=== PATIENT | female | born 1960 | race Asian ===

== ENCOUNTER 2024-09-05 07:09 | Emergency (ER) | payer OTHER, SELFPAY ==
[2024-09-05] VITALS (9 sets, daily range): BP systolic 125–151; BP diastolic 78–88; BMI 25.0
--- NOTE | 2024-09-05 09:43 | ED.GENMED ---
History of Present Illness
<Elida Garcia MD, Resident - Last Filed: 09/05/24 15:55>
General
Chief Complaint: Throat Problem
Source: patient and significant other
Exam Limitations: none
Time Seen by Provider: 09/05/24 08:56
Nursing documentation reviewed up to this point in time: agreed with
History of Present Illness
History of Present Illness:
Ms. Brandon Granado is a 63yoF with a PMH notable for epiglottitis over 30 years ago in [place] who is presenting with throat pain with difficulty breathing since yesterday morning.
Yesterday, the throat increased throughout the day. She was able to eat. Today, she has not attempted to eat. She took cefuroxime at 1:00 am today, which decreased her throat pain. She comes to the ED now due to increased difficulty breathing and
pain. She states her symptoms feel similar to when she had epiglottitis in [place] 30 years ago, for which she was treated with an injected antibiotic. She has also had Covid-19 in recent years.
She reports bending her neck/head to the left makes it easier to breathe, whereas bending her head to the right makes it harder to breathe. She says she feels fullness on the left side of her neck. She holds the left side of her neck.
She denies having sick contacts and does not interact with many new people on a daily basis.
She endorses lightheadedness. She denies pain in her chest, head, abdomen, and extremities.
She is allergic to sulfa drugs.
Past History
<Elida Garcia MD, Resident - Last Filed: 09/05/24 15:55>
Past History
ED Past Medical History: Other (epiglottitis several times, with the last being 30 years ago)
Patient has exhibited threatening behavior?: No
Review of Systems
<Elida Garcia MD, Resident - Last Filed: 09/05/24 15:55>
Review of Systems
All Other Systems: ROS reviewed and negative except as documented in HPI and ROS
Constitutional: Reports no symptoms (denies fevers and chills)
EENT: Reports sore throat
Respiratory: Reports trouble breathing
Cardiac: Reports no symptoms
ABD/GI: Reports no symptoms
: Reports no symptoms
Musculoskeletal: Reports no symptoms
Skin: Reports no symptoms
Neurological: Reports dizzy
Phy Exam
<Elida Garcia MD, Resident - Last Filed: 09/05/24 15:55>
Physical Exam
Physical Exam:
General: alert. Grimacing, uncomfortable, holding left side of neck.
Neck: firmness in submandibular region c/l, no tenderness to palpation
Mouth: Pharyngitis. Uvula non-deviated. Voice hoarse when asked to say 'ahh'
Lungs: Wheezes b/l, most significant at bases. Transmitted breath sounds (patient denies history of asthma and COPD)
Audible wheezing
CV: tachycardic.
Regular rhythm, no pedal edema
GI: nontender to palpation in all quadrants. No suprapubic tenderness. Bowel sounds normal
General Physical Exam
General Presentation: moderate distress
General age: appears stated age
General Skin: warm and dry
General Habitus: normal
General Mental: alert
General Hydration: dry mucous membranes
ENT Exam
ENT Exam: TM's normal (Left TM examined and nl (on the side patient is holding neck))
Pulmonary Exam
Pulmonary Exam: generalized wheezing and respiratory distress
Respiratory Effort: tachypnea
Course
<Elida Garcia MD, Resident - Last Filed: 09/05/24 15:55>
Orders/Labs/Results
Orders:
Orders
09/05/24 09:37
Electrocardiogram (*1) Urgent
Reason for Study: Shortness of Breath
09/05/24 09:40
Cardiac Monitoring- Treatment ONCE
09/05/24 10:07
Cardiac Monitoring- Treatment ONCE
CefTRIAXone [Rocephin] 2,000 mg IV NOW STA
CR Chest Portable - 1 View Stat
Comment:
Reason For Exam: resp distress
Reason Study Needs to be Portable: Patient Unstable
Pulse Ox/cont/shift [RESP] Urgent
Quantity: 1
09/05/24 10:08
CR Portable Spine - 1 View Stat
Comment:
Reason For Exam: sob, throat pain
09/05/24 10:15
Complete Blood Count/With Diff Urgent
Comprehensive Metabolic Panel Urgent
Lactic Acid Q4H
Comment: CANCEL 2nd LACTIC ACID IF 1st LACTIC ACID IS LESS THAN 2
Blood Culture Q30M
SHANI Source: Blood/Venous
Specimen Description:
Blood Culture Q30M
SHANI Source: Blood/Venous
Specimen Description:
09/05/24 10:27
CT Neck With Iv Contrast Urgent
Comment:
Reason For Exam: neck fullness
Sterile Water [Sterile Water For Injection] 20 ml .ROUTE .STK-MED
09/05/24 10:58
Vancomycin [Vancocin] 1,500 mg 0.9% Sodium Chloride 500 ml [Nss] 500 ml IV NOW
09/05/24 12:59
Diphenhydramine [Benadryl] 50 mg .ROUTE .STK-MED ONE
EPINEPHrine PF [Adrenalin] 1 mg .ROUTE .STK-MED ONE
09/05/24 13:07
Diphenhydramine [Benadryl] 50 mg IV NOW STA
09/05/24 13:08
0.9% Sodium Chloride 1000 ml [Nss] 1,000 ml IV BOLUS
09/05/24 17:47
Dexamethasone Sod Phosphate [Decadron] 8 mg IV NOW STA
Abnormal Lab Results
09/05/24
10:15
MPV 11.2 H fL
(7.4-10.4)
Chloride 114 H mmol/L
(98-107)
Carbon Dioxide 21 L mmol/L
(22-30)
Glucose 113 H mg/dl
(70-99)
09/05/24 10:15
09/05/24 10:15
Vital Signs
Initial and Last Documented VS:
Initial Vital Signs
Temp Pulse BP Pulse Ox
97.6 F 94 125/86 99
09/05/24 07:26 09/05/24 07:26 09/05/24 07:26 09/05/24 07:26
Last Documented Vital Signs
Temp Pulse Resp BP Pulse Ox
97.6 F 93 14 146/85 100
09/05/24 07:26 09/05/24 18:30 09/05/24 18:30 09/05/24 17:00 09/05/24 17:45
<Robyn Delaney MD - Last Filed: 09/05/24 16:04>
Orders/Labs/Results
Orders:
Orders
09/05/24 09:37
Electrocardiogram (*1) Urgent
Reason for Study: Shortness of Breath
09/05/24 09:40
Cardiac Monitoring- Treatment ONCE
09/05/24 10:07
Cardiac Monitoring- Treatment ONCE
CefTRIAXone [Rocephin] 2,000 mg IV NOW STA
CR Chest Portable - 1 View Stat
Comment:
Reason For Exam: resp distress
Reason Study Needs to be Portable: Patient Unstable
Pulse Ox/cont/shift [RESP] Urgent
Quantity: 1
09/05/24 10:08
CR Portable Spine - 1 View Stat
Comment:
Reason For Exam: sob, throat pain
09/05/24 10:15
Complete Blood Count/With Diff Urgent
Comprehensive Metabolic Panel Urgent
Lactic Acid Q4H
Comment: CANCEL 2nd LACTIC ACID IF 1st LACTIC ACID IS LESS THAN 2
Blood Culture Q30M
SHANI Source: Blood/Venous
Specimen Description:
Blood Culture Q30M
SHANI Source: Blood/Venous
Specimen Description:
09/05/24 10:27
CT Neck With Iv Contrast Urgent
Comment:
Reason For Exam: neck fullness
Sterile Water [Sterile Water For Injection] 20 ml .ROUTE .STK-MED
09/05/24 10:58
Vancomycin [Vancocin] 1,500 mg 0.9% Sodium Chloride 500 ml [Nss] 500 ml IV NOW
09/05/24 12:59
Diphenhydramine [Benadryl] 50 mg .ROUTE .STK-MED ONE
EPINEPHrine PF [Adrenalin] 1 mg .ROUTE .STK-MED ONE
09/05/24 13:07
Diphenhydramine [Benadryl] 50 mg IV NOW STA
09/05/24 13:08
0.9% Sodium Chloride 1000 ml [Nss] 1,000 ml IV BOLUS
09/05/24 17:47
Dexamethasone Sod Phosphate [Decadron] 8 mg IV NOW STA
Abnormal Lab Results
09/05/24
10:15
MPV 11.2 H fL
(7.4-10.4)
Chloride 114 H mmol/L
(98-107)
Carbon Dioxide 21 L mmol/L
(22-30)
Glucose 113 H mg/dl
(70-99)
09/05/24 10:15
09/05/24 10:15
Vital Signs
Initial and Last Documented VS:
Initial Vital Signs
Temp Pulse BP Pulse Ox
97.6 F 94 125/86 99
09/05/24 07:26 09/05/24 07:26 09/05/24 07:26 09/05/24 07:26
Last Documented Vital Signs
Temp Pulse Resp BP Pulse Ox
97.6 F 93 14 146/85 100
09/05/24 07:26 09/05/24 18:30 09/05/24 18:30 09/05/24 17:00 09/05/24 17:45
<Braeden Jean Baptiste MD - Last Filed: 09/05/24 19:00>
Orders/Labs/Results
Orders:
Orders
09/05/24 09:37
Electrocardiogram (*1) Urgent
Reason for Study: Shortness of Breath
09/05/24 09:40
Cardiac Monitoring- Treatment ONCE
09/05/24 10:07
Cardiac Monitoring- Treatment ONCE
CefTRIAXone [Rocephin] 2,000 mg IV NOW STA
CR Chest Portable - 1 View Stat
Comment:
Reason For Exam: resp distress
Reason Study Needs to be Portable: Patient Unstable
Pulse Ox/cont/shift [RESP] Urgent
Quantity: 1
09/05/24 10:08
CR Portable Spine - 1 View Stat
Comment:
Reason For Exam: sob, throat pain
09/05/24 10:15
Complete Blood Count/With Diff Urgent
Comprehensive Metabolic Panel Urgent
Lactic Acid Q4H
Comment: CANCEL 2nd LACTIC ACID IF 1st LACTIC ACID IS LESS THAN 2
Blood Culture Q30M
SHANI Source: Blood/Venous
Specimen Description:
Blood Culture Q30M
SHANI Source: Blood/Venous
Specimen Description:
09/05/24 10:27
CT Neck With Iv Contrast Urgent
Comment:
Reason For Exam: neck fullness
Sterile Water [Sterile Water For Injection] 20 ml .ROUTE .STK-MED
09/05/24 10:58
Vancomycin [Vancocin] 1,500 mg 0.9% Sodium Chloride 500 ml [Nss] 500 ml IV NOW
09/05/24 12:59
Diphenhydramine [Benadryl] 50 mg .ROUTE .STK-MED ONE
EPINEPHrine PF [Adrenalin] 1 mg .ROUTE .STK-MED ONE
09/05/24 13:07
Diphenhydramine [Benadryl] 50 mg IV NOW STA
09/05/24 13:08
0.9% Sodium Chloride 1000 ml [Nss] 1,000 ml IV BOLUS
09/05/24 17:47
Dexamethasone Sod Phosphate [Decadron] 8 mg IV NOW STA
Abnormal Lab Results
09/05/24
10:15
MPV 11.2 H fL
(7.4-10.4)
Chloride 114 H mmol/L
(98-107)
Carbon Dioxide 21 L mmol/L
(22-30)
Glucose 113 H mg/dl
(70-99)
09/05/24 10:15
09/05/24 10:15
Vital Signs
Initial and Last Documented VS:
Initial Vital Signs
Temp Pulse BP Pulse Ox
97.6 F 94 125/86 99
09/05/24 07:26 09/05/24 07:26 09/05/24 07:26 09/05/24 07:26
Last Documented Vital Signs
Temp Pulse Resp BP Pulse Ox
97.6 F 93 14 146/85 100
09/05/24 07:26 09/05/24 18:30 09/05/24 18:30 09/05/24 17:00 09/05/24 17:45
<Elida Garcia MD, Resident - Last Filed: 09/05/24 15:55>
MDM/Problems Addressed
Differential Diagnosis Includes:
Strep pharyngitis
Epiglottitis
Retropharyngeal abscess
MDM/Problems Addressed:
Ms. 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 A collection in the L pyriform sinus, likely an abscess, was found on CT.
CXR: no acute pulmonary process
CBC: wnl
CMP: Co2 low and Cl high, compatible with respiratory alkalosis
EKG: wnl
Troponin: non-elevated
Afebrile, satting at 100%, RR 15, pulse 72, bp 126/78
CT neck: collection at left pyriform sinus (near epiglottis), which may be abscess or mass
ENT consulted for next steps in management.
Ceftriaxone IV 2g and vancomycin IV: given patient's respiratory distress, initially treated as possible epiglottitis. Continue for abscess
Throat pain: declined pain meds
<Elida Garcia MD, Resident - Last Filed: 09/05/24 15:55>
*Pulse Oximetry
SaO2: 99
Oxygen Mode of Delivery: Room air
Patient hypoxic: no
*EKG
Interpreted by ED Provider?: Yes
Interpretation: normal
Rate: normal
Rhythm: sinus
Ischemia: non-specific ST changes
*Client Liaison Interpretation
Rate: normal
Interpretation: normal
Rhythm: sinus
*Critical Care Note
Total Time (30-74mins, 75-104mins- exclusive of procedures): 30-74mins
comment:
Respiratory distress
Vancomycin infusion reaction
<Elida Garcia MD, Resident - Last Filed: 09/05/24 15:55>
Update Note
Update Note:
When checking in on the patient 30 minutes after starting IV ceftriaxone, patient was noted to be breathing comfortably with some remaining breath sounds. She was dozing off but arousable easily. She was able to walk to the bathroom with the
assistance of her .
Abscess or mass at left pyriform sinus (adjacent to epiglottis) demonstrated on neck CT. Epiglottis appears unremarkable.
During vancomycin infusion, patient developed a pruritic, diffuse, macular rash on shoulders, back, upper chest, forehead, and face. Patient denied SOB. Did not desat. Stopped infusion and gave 50mg diphenhydramine. Patient states itchiness and warm
of rash decreased.
An hour later, patient's rash and pruritus are gone. Restarted remaining 210 ml vancomycin at 1mL/min. Patient has not developed rash or pruritus again. Patient was informed an ENT doctor after his clinic to discuss next steps.
<Braeden Jean Baptiste MD - Last Filed: 09/05/24 19:00>
Update Note
Update Note:
When checking in on the patient 30 minutes after starting IV ceftriaxone, patient was noted to be breathing comfortably with some remaining breath sounds. She was dozing off but arousable easily. She was able to walk to the bathroom with the
assistance of her .
Abscess or mass at left pyriform sinus (adjacent to epiglottis) demonstrated on neck CT. Epiglottis appears unremarkable.
During vancomycin infusion, patient developed a pruritic, diffuse, macular rash on shoulders, back, upper chest, forehead, and face. Patient denied SOB. Did not desat. Stopped infusion and gave 50mg diphenhydramine. Patient states itchiness and warm
of rash decreased.
An hour later, patient's rash and pruritus are gone. Restarted remaining 210 ml vancomycin at 1mL/min. Patient has not developed rash or pruritus again. Patient was informed an ENT doctor after his clinic to discuss next steps.
1900... Patient seen by ENT. Patient apparently improved significantly with steroids. They felt if she improved she could go home if not admission. Patient and state they have improved significantly and would like to go home and manage at
home. She is in no distress. She will be discharged with steroids antibiotics and follow-up. Speech appears normal. No drooling or stridor.
ED Attending Note
<Elida Garcia MD, Resident - Last Filed: 09/05/24 15:55>
-
Portions of this chart may have been created with voice recognition software.� Occasional wrong word or��sound alike� substitutions may have occurred due to the inherent limitations of voice recognition software.
<Robyn Delaney MD - Last Filed: 09/05/24 16:04>
ED Attending Note
Patient seen and examined by attending physician: Yes
I performed a history and physical exam of patient and discussed management with resident, I reviewed resident's note and agree with documented findings and plan of care.: Yes
ED Attending Note:
63-year-old female presents emergency department with progressive abnormal feeling prickly on the left side of her throat area. Initially she felt discomfort there yesterday, but now she describes just a sensation like there is something there on
the left side that is making it hard to breathe. This feels similar to when she was diagnosed with epiglottitis in [place] many years ago. She denies fever, chills, chest pain. She does have discomfort in the left ear. She denies recent dental
work or recent URI. On exam, tolerating secretions, no drooling, voice is clear, no stridor. TM clear on the left. No submental swelling, no trismus, oropharynx clear, uvula midline, no posterior pharyngeal swelling. No tenderness to palpation
noted of the neck/facial area, no redness warmth.Lungs CTA. Hrt rrr. When listening closely, sl upper airway transmitted sounds noted, without actual stridor.
Xray changed to portable, pox 100%. IV abx, labs, etc ordered.
Multiple reassesments here...pt much more comfortable (she has been quite anxious during her stay here), pox 100%, no stridor or drool. Dr Hampton to see pt in ED sometime after 5pm, dispo accordingly.
Discharge Plan
Departure
Patient Disposition: Home (Routine Discharge)
Date of Disposition: 09/05/24
Time of Disposition: 18:54
Patient with high blood pressure during this ER visit?: Yes
Condition: Good
Discharge Problem:
Abscess
Instructions: BLOOD PRESSURE
Prescriptions:
New
amoxicillin-pot clavulanate 875-125 mg tablet
1 tab PO BID Qty: 14 0RF
prednisone 10 mg tablet
10 mg PO DAILY Qty: 30 0RF
Rx Instructions:
5 tablets day 1. Then 1 less tablet every other day until gone
Referrals:
[facility] [Other]
NONE,* [Family Provider, Internal Medicine]
Larry Hampton MD [Active, ENT] - Follow up in 2-3 days
Activity Restrictions/Additional Instructions:
IF YOU DEVELOP TROUBLE BREATHING, FEVER, VOMITING, INCREASING PAIN, SWELLING, CHANGE IN VOICE, OR OTHER WORRISOME SIGNS, GO TO THE ER IMMEDIATELY!
Start the antibiotics and prednisone tomorrow
Interventions
Interventions:
*Risk Screen - Suicide Last Done: 09/05/24 07:35
*General Assessment Last Done: 09/05/24 07:35
*Neglect/Abuse Screening Last Done: 09/05/24 11:11
*ED COVID-19 Vaccine History Last Done: 09/05/24 07:35
ED-EENT Assessment Last Done: 09/05/24 11:11
ED- Pulmonary Assessment Last Done: 09/05/24 11:11
Discharge Date and Time
Print Language: MONGOLIAN
--- NOTE | 2024-09-05 10:28 | PHANOTE ---
med rec note- patient [place] cephalosporin from [place] and took the medication yesterday
[2024-09-05] MEDS: ROCEPHIN 2000 MG IV (10:32)
[2024-09-05 10:37] LABS: Hematocrit 39.4 % (37.0-47.0); Hemoglobin 13.8 g/dL (12.0-16.0); Mean Corp Hgb Conc. 35.0 g/dL (33.0-37.0); Mean Corpuscular Volume 86.8 fL (81.0-99.0); Nucleated Red Blood Cells % 0 %; Platelet Count 198 10^3/uL (130-400); Red Cell Dist. Width 12.4 % (11.5-14.5)
[2024-09-05 11:03] LABS: ALT (SGPT) 21 U/L (0-35); AST (SGOT) 23 U/L (14-36); Albumin 4.8 g/dl (3.5-5.0); Alkaline Phosphatase 74 U/L (38-126); Blood Urea Nitrogen 10 mg/dl (7-17); Calcium 10.2 mg/dl (8.4-10.2); Carbon Dioxide 21 mmol/L (22-30); Chloride 114 mmol/L (98-107); Estimated Creatinine Clearance 64 ml/min; Glucose 113 mg/dl (70-99); Potassium 3.6 mmol/L (3.5-5.1); Sodium 144 mmol/L (135-145); Total Protein 8.0 g/dl (6.3-8.2); eGFR > 60.00
[2024-09-05] MEDS: VANCOCIN 530 MG IV (11:48)
[2024-09-05] MEDS: BENADRYL 50 MG IV (13:08)
[2024-09-05] MEDS: NSS 1000 IV (13:09)
--- NOTE | 2024-09-05 14:38 | EDRN ---
IV vanco restarted at 60ml/hr, pt has 205ml remaining to admin.
[2024-09-05] MEDS: DECADRON 8 MG IV (17:56)
--- NOTE | 2024-09-05 18:08 | W.CON.OTO ---
Otolaryngology Consult
Consult
Date/Time Consultation Requested: 09/05/2024
Date/Time Consultation Performed: 5:30PM
Reason for Consultation: Throat pain
Chief Complaint
Left throat pain
History of Present Illness
Patient is a 63-year-old female who complains of throat pain for 1 day, mainly on the left side of her throat. Her pain began yesterday. After waking this morning it was felt to be significantly worse. She also had the sensation that something
was blocking her breathing and swallowing. Therefore she came to the emergency room for evaluation. Is a [place] immigrant. She has been treated for similar pain in [place] in the past. Mainly during her 30s and 40s she had recurrent throat pain
that she states was diagnosed as epiglottitis. She was treated with steroids and her symptoms improved 30 to 60 minutes after receiving the steroids each time. After she returned 40 parents of this issue diminished. She last had this symptom
approximately 5 years ago. Currently she still complains of pain on the left side of her neck and in her throat. She is having no acute difficulty breathing or swallowing her secretions. She has been kept n.p.o. since coming to the emergency room
earlier today. She denies any fevers or chills. She denies any coughing or phlegm. She has had no recent illnesses or infections.
Medical History
Additional Past Medical History:
Epiglottitis, several times in the past, treated in [place]
Patient Allergies:
Allergies
Allergy/AdvReac Type Severity Reaction Status Date / Time
Sulfa (Sulfonamide Allergy Unknown Verified 09/05/24 13:38
Antibiotics)
vancomycin Allergy Itching Verified 09/05/24 13:38
Home Medications / Current Medications:
�Medication �Instructions �Recorded
No Meds [No Current Medications] 09/05/24
Physical Exam
Vitals / Labs:
Vital Signs
Temp 97.6 F 09/05/24 07:26
Temp route: Oral 09/05/24 07:26
Pulse 94 09/05/24 17:30
Resp Rate 13 09/05/24 17:30
Blood pressure 146/85 09/05/24 17:00
Blood pressure extremity used: Left upper arm 09/05/24 07:26
Position: Sitting 09/05/24 07:26
MAP (cuff-Nicole Monitor) 104 09/05/24 17:00
SaO2 99 09/05/24 17:30
Oxygen Mode of Delivery Room air 09/05/24 11:11
Actual Weight 60 kg 09/05/24 10:13
Body Mass Index (BMI) 25.0 09/05/24 10:13
Lab Results
09/05/24 10:15
09/05/24 10:15
Exam:
Awake, alert, oriented, in no acute distress
Vital signs stable, afebrile
Breathing comfortably at 99% on room air, no stridor audible
Head-normocephalic and atraumatic
Ears-clear bilaterally
Nasal cavity-clear bilaterally
Oral cavity-tongue and oropharynx within normal limits, no erythema or exudate present
Neck-mildly tender lymphadenopathy noted on left side, no significant mass or neoplasm present, no fluctuance noted
Flexible fiberoptic laryngoscopy performed at the bedside. Scope easily passed through the left nasal cavity. Nasopharynx clear. Oropharynx unremarkable. Epiglottis, vallecula, base of tongue within normal limits. Mild edema at inferior aspect
of left aryepiglottic fold extending onto left arytenoid effacement of left piriform sinus. Minimal erythema, no purulent exudate noted. Right aryepiglottic fold and right arytenoid normal with clear right piriform sinus. True and false vocal
folds unremarkable bilaterally. Vocal folds mobile with phonation. Airway widely patent. Subglottis appears clear.
Assessment / Plan
A/P- 63-year-old female with apparent acute laryngitis. Patient has swelling of the left arytenoid and left aryepiglottic fold. Etiology is unclear. Patient does have a history of similar episodes in [place]. She states they were successfully
treated with steroids. Patient may have an underlying cyst of this area that could continually be reinfected. I would recommend treating her with some steroids now in the ER. If she does improve she can be discharged home. If not she should be
kept overnight for observation. If patient is discharged home she should go home with a steroid taper and oral antibiotics for 10 days. She can follow-up in my office in 1 week for reevaluation. I did discuss the option of admission with the
patient but she was adamant she wanted to go home. This plan was discussed with her attending ER physician, Dr. Braeden Jean Baptiste.
Data Reviewed
Radiology: Image Personally Visualized and interpreted
CT Scan: Image Personally Visualized and interpreted ( CT neck reviewed. There is some edema with possible small area of fluid collection at the left aryepiglottic fold.) and Discussed with Family
== END 2024-09-05 19:07 | disposition home or self-care (01) ==
LOC: EMR 07:09
PROVIDERS: EMERGENCY PHYSICIAN Emergency Medicine; OTHER PHYSICIAN Otolaryngology
DX: J39.0 Retropharyngeal and parapharyngeal abscess (principal); J04.0 Acute laryngitis; R60.0 Localized edema; M54.2 Cervicalgia; R07.0 Pain in throat; R42 Dizziness and giddiness; R06.02 Shortness of breath; R03.0 Elevated blood-pressure reading, without diagnosis of hypertension; J37.0 Chronic laryngitis; F41.9 Anxiety disorder, unspecified; Z86.16 Personal history of COVID-19; Z88.2 Allergy status to sulfonamides; Z88.1 Allergy status to other antibiotic agents
CPT/HCPCS: 99285; 96374; 31575; 96375 ×3; 96361; 70491; 71045; 72020; 80053; 83605; 85025; 87040; 93005; Q9967